=== PATIENT | male | born 1960 | race Caucasian/White ===

== ENCOUNTER 2018-11-18 13:35 | Outpatient (CLI) | payer OTHER, SELFPAY ==
[2018-11-18] VITALS (7 sets, daily range): BP systolic 123–143; BP diastolic 75–87; PULSE 64–72; RESP 16–18; TEMP 36.2; O2SAT 95–96
--- NOTE | 2018-11-18 13:39 | DI.RAD.S_ITS ---
PROCEDURE: PAIN L/SI FACET INJ/BLK 1STL INDICATIONS: SPONDYLOSIS FINDINGS: Fluoroscopic spot filming was performed to verify placement of spinal needles at the left L3-L4 at L4-L5 level(s), as labeled on the films. Appropriate location(s) of the needle tip(s) was confirmed by injection of iodinated contrast. IMPRESSION: Fluoroscopy for pain management. Dictated by: Anitha Brown M.D. on 11/18/2018 at 17:43 Approved by: Anitha Brown M.D. on 11/18/2018 at 17:46
[2018-11-18] MEDS: MIDAZOLAM 5 MG/5 ML VIAL IV (14:30)
--- NOTE | 2018-11-18 14:39 | PC.NURSE ---
pt tolerated procedure, pt awake and alert through out. Able to get off table with standby assist. Transferred pt via wheelchair to pre procedure room to Resume monitoring with Jina FOSTER.
[2018-11-18] MEDS: fentaNYL 100 MCG/2 ML INJ 50 MCG IV (14:47)
--- NOTE | 2018-11-18 14:49 | PC.NURSE ---
ACCEPTED CARE OF PT IN POST PROC AREA IN STABLE CONDITION
[2018-11-18] MEDS: BUPIVACAINE 0.5% (PF) VIAL 2 ML INJ (14:52)
[2018-11-18] MEDS: BETAMETHASONE 30 MG/5 ML MDV 12 MG INJ (14:52)
[2018-11-18] MEDS: IOPAMIDOL 15 ML VIAL 3 ML INJ (14:52)
--- NOTE | 2018-11-18 15:32 | P.PCN_ITS ---
Procedures Date/Time Date of procedure: 11/18/18 Time of procedure: 15:30 General Procedure description: PREOP DIAGNOSIS 1. FACET ARTHROPATHY, 2. AXIAL LBP, 3. MULTILEVEL DDD, POST OP DIAGNOSIS 1. FACET ARTHROPATHY, 2. AXIAL LBP, 3. MULTILEVEL DDD, PROCEDURES 1. FLUORSCOPICALLY GUIDED CONTRAST CONTROLLED FACET JOINT INJECTIONS LEFT L3/4 , L4/5 SURGEON: Leonel Newton, DO INDICATIONS Kelechi is referred by Dr. Dos Santos for treatment of Axial LBP FINDINGS Multilevel Facet Arthropathy with Clinically significant axial LBP DESCRIPTION OF PROCEDURE Fluoroscopically guided, contrast-controlled left L3/4, L4/5 facet joint injections. Following denial of allergy and review of potential side effects and complications, including, but not necessarily limited to, infection, allergic reaction, local tissue breakdown, stroke, temporary or permanent nerve injury, paralysis, and possible , the patient indicated that the patient understood and agreed to proceed. An informed consent document was signed by the patient, witnessed by a nurse, and placed in the patient's chart. Additionally, other treatment options including medications, modalities, and physical therapy were reviewed with the patient. After review of previous anaesthesic history and IV conscious sedation the patient was deemed safe to proceed with todays procedure with IV conscious sedation as ASA class II designation. Safety time-out was performed to confirm patient ID, procedure to be performed and site of procedure. IV sedation was accomplished with a combination of 3mg of Versed and 50mcg of Fentanyl administered by the RN after DO order, titrated to patient comfort during the course of the procedure while the patient remained responsive to all verbal commands. In the prone position, following sterile prep and drape of the lumbar region, the posterior aspect of the left L3/4, L4/5 facet joints were identified fluoroscopically. The skin was anesthetized via a 25-gauge 1.5-inch needle with 1% lidocaine solution into the corresponding facet joints. At this point, a 22-gauge 3.5-inch spinal needle was atraumatically introduced and advanced under fluoroscopic guidance into the corresponding facet joints. Following negative aspiration, injections of approximately 0.2-cc of Isovue 200 confirmed interarticular placement without vascular uptake. Radiological data, including multiple fluoroscopic views of the lumbosacral spine, reveal a spinal needle at the left L3/4, L4/5 facet joints. Subsequent views show flow of contrast material both superiorly and inferiorly within the joint space without vascular or intrathecal uptake. At this point, a total of 0.5 cc including a mixture of 0.25 cc Marcaine and 0.25 cc betamethasone was injected without complication into each of the corresponding facet joints. The patient tolerated the procedure well without signs or symptoms of complications prior to transfer to the recovery area for further monitoring. The patient was then transferred to the recovery area where they were observed for an appropriate period of time after the injection. The patient reported a VAS score of 7 prior to the procedure and a post-procedure VAS of 0. Total Fluoroscopy Time: 12.7 seconds Total Conscious Sedation Time: 24min POST OP INSTRUCTIONS The patient was provided a Pain Log to continue to record their response to the target-specific procedure prior to follow-up visit with their referring physician. Additionally, specific post-injection care instructions and a contact number to our office were provided if concerns arise regarding possible complications associated with the procedure are suspected Complications: none
--- NOTE | 2018-11-19 16:15 | PC.NURSE ---
FOLLOW UP CALL MADE. LEFT MSG WITH CLINIC # FOR ANY QUESTIONS/CONCERNS.
== END 2018-11-18 15:13 | disposition home or self-care (01) ==
LOC: RAD 13:38
PROVIDERS: PCP Family Medicine; Visit Provider Physical Medicine & Rehabilitation
DX: M47.817 Spondylosis without myelopathy or radiculopathy, lumbosacral region (principal); M51.36 Other intervertebral disc degeneration, lumbar region; M54.5 Low back pain
CPT/HCPCS: 64493; 64494; 99152; J0702; J2250; J3010

== ENCOUNTER 2019-01-06 12:27 | Outpatient (CLI) | payer OTHER, SELFPAY ==
[2019-01-06] VITALS (8 sets, daily range): BP systolic 114–154; BP diastolic 66–97; PULSE 63–72; RESP 16–18; TEMP 36.7; O2SAT 94–97
--- NOTE | 2019-01-06 12:29 | DI.RAD.S_ITS ---
PROCEDURE: PAIN L/S TRANSFORAMINAL INJECT INDICATIONS: SPINAL STENOSIS FINDINGS: Fluoroscopic spot filming was performed to verify placement of spinal needles at the L3-L4 level(s), as labeled on the films. Appropriate location(s) of the needle tip(s) was confirmed by injection of iodinated contrast. Dictated by: Serge Davidson M.D. on 01/06/2019 at 13:56 Approved by: Serge Davidson M.D. on 01/06/2019 at 13:56
[2019-01-06] MEDS: MIDAZOLAM 5 MG/5 ML VIAL IV (13:18)
[2019-01-06] MEDS: DEXAMETHASONE 10 MG/ML VIAL 20 MG INJ (13:23)
[2019-01-06] MEDS: IOPAMIDOL 15 ML VIAL 3 ML INJ (13:23)
[2019-01-06] MEDS: BUPIVACAINE 0.25% (PF) VIAL 2 ML INJ (13:23)
--- NOTE | 2019-01-06 13:26 | PC.NURSE ---
assisting pt off table and transporting to post proc area in stable condition
--- NOTE | 2019-01-06 13:38 | PM.PROC.1 ---
Procedures Date/Time Date of procedure: 01/06/19 Time of procedure: 13:38 General Procedure description: PROVIDER: Leonel Newton DO Operative Note PREOP DIAGNOSIS 1. FORAMINAL STENOSIS WITH LE SYMPTOMS, POST OP DIAGNOSIS 1. FORAMINAL STENOSIS WITH LE SYMPTOMS, PROCEDURES 1. FLUOROSCOPICALLY GUIDED CONTRAST CONTROLLED TRANSFORAMINAL EPIDURAL STEROID INJECTION - LEFT L3/4 TFESI SURGEON: Leonel Newton, INDICATIONS Kelechi is referred by Dr. Cardenas for treatment of HNP with left LE Symptoms FINDINGS Foraminal Nerve Root Compression secondary to disc disease and facet hypertrophy DESCRIPTION OF PROCEDURE Following denial of allergy and review of potential side effects and complications, including, but not necessarily limited to, infection, allergic reaction, local tissue breakdown, stroke, temporary or permanent nerve injury, paralysis, and possible , the patient indicated that the patient understood and agreed to proceed. An informed consent document was signed by the patient, witnessed by a nurse, and placed in the patient's chart. Additionally, other treatment options including medications, modalities, and physical therapy were reviewed with the patient. After review of previous anaesthesic history and IV conscious sedation the patient was deemed safe to proceed with todays procedure with IV conscious sedation as ASA class II designation. Safety time-out was performed to confirm patient ID, procedure to be performed and site of procedure. IV sedation was accomplished with a combination of 3mg of Versed was administered by the RN after DO order, titrated to patient comfort during the course of the procedure while the patient remained responsive to all verbal commands In the prone position following sterile prep and drape of the lumbar region, the left L3/4 posterior neuroforamen was identified fluoroscopically. The skin was anesthetized via a 25-gauge 1.5-inch needle with 1% lidocaine solution. At this point, a 25-gauge 3.5-inch spinal needle was atraumatically introduced and advanced under fluoroscopic guidance through the posterior left L3/4 neuroforamen to approximately the anterior aspect of the canal. Depth was confirmed on lateral view. Following negative aspiration, injection of approximately 1.5 cc of Isovue 200 under live fluoroscopy in the AP view confirmed excellent flow along the nerve root, into the epidural space without vascular or intrathecal uptake observed Radiological data, including multiple fluoroscopic views of the lumbosacral spine, reveal a spinal needle at the left L3/4 posterior neuroforamen. Subsequent views show flow of contrast material flowing superiorly and inferiorly along the nerve root confirming epidural flow. Subsequently, a test dose of 1.5 cc of 1% lidocaine solution was administered and patient was observed for two minutes for signs or symptoms of complications, including abdominal pain, shortness of breath, bilateral upper or lower extremity weakness, nausea and vomiting, prior to steroid injection. At this point, a total of 2cc or 20mg of dexamethasone was injected without incident. The patient tolerated the procedure well without signs or symptoms of complications prior to transfer to the recovery area continued monitoring without incident. The patient was then transferred to the recovery area where they were observed for an appropriate time after the injection. The patient reported a VAS score of 7 prior to the procedure and a post-procedure VAS of 0. Total Fluoroscopy Time: 24.2 seconds Total Conscious Sedation Time: 24min POST OP INSTRUCTIONS The patient was provided a Pain Log to continue to record their response to the target-specific procedure prior to follow-up visit with their referring physician. Additionally, specific post-injection care instructions and a contact number to our office were provided if concerns arise regarding possible complications associated with the procedure are suspected. Leonel Newton DO Complications: none
--- NOTE | 2019-01-06 14:04 | PC.NURSE ---
Pt returned from procedure on a gurney related to his left leg is completely numb. He is awake and alert and can move all his extremities he just can't feel the lower ones. L>R. Resumed monitoring from Jina FOSTER.
--- NOTE | 2019-01-06 14:07 | PC.NURSE ---
At 1400 checked pt's legs again, unable to feel much in the left leg, still able to move them independently. pt remains awake and alert with needs met.
--- NOTE | 2019-01-06 14:23 | PC.NURSE ---
At 1415 pt has noticed some tingling in his left leg now but still haven't tried him on his feet yet. His needs are met.
--- NOTE | 2019-01-06 14:40 | PC.NURSE ---
Pt attempt to stand up from gurney with stand by assist and his left leg is still a little off, he just needs to wait a little bit longer for it to completely return.
--- NOTE | 2019-01-06 15:01 | PC.NURSE ---
pt able to stand on both feet with stability, he reports his butt is still numb but he can stand with equal power in both legs. His is driving him home to [facility]. He was able to get into the car ok.
--- NOTE | 2019-01-07 15:07 | PC.NURSE ---
Follow up call made but patient did not answer phone so message left.
== END 2019-01-06 15:01 ==
PROVIDERS: PCP Family Medicine; Visit Provider Physical Medicine & Rehabilitation
DX: M48.061 Spinal stenosis, lumbar region without neurogenic claudication (principal); M51.16 Intervertebral disc disorders with radiculopathy, lumbar region; M99.83 Other biomechanical lesions of lumbar region
CPT/HCPCS: 64483; 99152; J1100; J2250; J3010

== ENCOUNTER → 2019-06-01 06:07 | Outpatient (CLI) | payer OTHER, SELFPAY ==
--- NOTE | 2019-06-01 06:10 | DI.MRI.S_ITS ---
PROCEDURE: MR HIP LT WO CON INDICATIONS: Acetabular impingement TECHNIQUE: Noncontrast coronal T1 spin echo and STIR through the bony pelvis. Coronal and axial T2 fast spin echo with fat saturation, sagittal T1 spin echo, and oblique axial T2 fast spin echo with fat saturation through the hip. COMPARISON: None. FINDINGS: Image quality: Excellent. Bones and joints: Bone marrow of the right-sided pelvic ring and proximal femurs show normal signal throughout. In contrast, on the left, there is reactive marrow space edema associated with the presence of severe osteoarthritis involving the left hip where a [id number] articulation and prominent osteophytic spurring is present. No intraosseous lesions or fractures. No avascular necrosis of the femoral heads. The visualized lower lumbar spine appears normally aligned. Tendons and ligaments: The gluteus medius and minimus tendons appear intact, without associated muscle atrophy. The nearby proximal iliotibial band also appears intact. The iliopsoas tendon appears intact, without adjacent bursal fluid collections or evidence for impingement syndrome. The origin of the hamstring tendon is intact at the ischial tuberosity, as well as the associated sacrotuberous ligament. The straight and reflected heads of the rectus femoris muscle origin appear intact, as well as the conjoint tendon. The ligamentum teres appears intact where visualized. Labrum and cartilage: The acetabular labrum appears largely absent into severe osteoarthritis involving the left hip joint, but is relatively poorly seen in the absence of intra-articular contrast. Cartilage surface of the femoral head appears of markedly reduced thickness with essentially [id number] articulation. The alpha angle of the femur is within normal limits at less than 55 degrees. note is made of a reactive moderate joint effusion with a secondary synovial protrusion projecting anteriorly (centered on series 4 image 21) through the capsular defect measuring up to 9 mm in width resulting in a synovial protrusion between the femoral artery and vein measuring up to 2.0 x 2.8 cm in maximal axial dimension. A portion of this protrusion extends cephalad along the iliopsoas muscle to a slight degree resulting in mild edema along the left iliac fossa more cephalad within the pelvis. Soft tissues: Visualized muscles demonstrate normal bulk and internal signal. Quadratus femoris muscle demonstrates no internal edema to suggest ischiofemoral impingement. The proximal sciatic neurovascular bundle appears normal adjacent to the hamstring tendons. No free pelvic fluid. Bladder wall thickness is normal. Genitourinary structures and bowel loops appear normal where visualized. IMPRESSION: Severe left hip joint degenerative osteoarthritis with [id number] articulation and with a secondary moderate sized joint effusion on the left resulting in any anterior directed synovial protrusion at both impinges on the posterior border of the femoral artery and vein but also extends with reactive edema directed cephalad along the iliopsoas muscle and into the left iliac fossa. Orthopedic surgical consultation is anticipated. Right hip joint osteoarthritis is quite mild. Dictated by: Floyd Diaz M.D. on 06/01/2019 at 16:46 Approved by: Floyd Diaz M.D. on 06/01/2019 at 16:50
== END ==
PROVIDERS: PCP Family Medicine; Visit Provider Physical Medicine & Rehabilitation
DX: M25.852 Other specified joint disorders, left hip (principal); M16.0 Bilateral primary osteoarthritis of hip; M25.452 Effusion, left hip
CPT/HCPCS: 73721

== ENCOUNTER → 2019-07-29 19:01 | Outpatient (ROUT) | payer OTHER, SELFPAY ==
[2019-07-29 19:29] LABS: Add Manual Diff / Slide Review NO; Alanine Aminotransferase 24 IU/L (21-72); Albumin 4.6 g/dL (3.5-5.0); Albumin Globulin Ratio 1.4 (1.0-2.8); Alkaline Phosphatase 82 U/L (38-126); Aspartate Aminotransferase 43 IU/L (17-59); Basophils Absolute Auto 100 /uL (0-100); Basophils Percent Auto 0.6 % (0-2); Bilirubin Total 0.9 mg/dL (0.2-1.3); Blood Urea Nitrogen 17 mg/dL (9-20); Calcium 9.7 mg/dL (8.4-10.2); Carbon Dioxide 24 mmol/L (22-32); Chloride 104 mmol/L (98-107); Cholesterol 262 mg/dL (140-199); Eosinophils Absolute Auto 200 /uL (0-450); Eosinophils Percent Auto 2.3 % (2-4); Estimated Glomerular Filt Rate > 60.0 mL/min (>60); Globulin 3.2 g/dL (1.7-4.1); Glucose 113 mg/dL (80-110); HDL Cholesterol 47 mg/dL (40-60); Hematocrit 44.1 % (41-53); Hemoglobin 15.5 g/dL (13.5-17.5); LDL Cholesterol Calculated 155 mg/dL (<100); Lymphocytes Absolute Auto 3000 /uL (1100-4500); Lymphocytes Percent Auto 31.7 % (25-40); Mean Corpuscular Hemoglobin 30.9 PG (26-34); Mean Corpuscular Volume 88.3 fL (80-100); Monocytes Absolute Auto 600 /uL (0-900); Monocytes Percent Auto 6.4 % (3-14); Neutrophils Absolute Auto 5500 /uL (1500-7000); Platelet Count 297 X10^3/uL (150-400); Potassium 3.8 mmol/L (3.4-5.1); Red Cell Distribution Width 13.3 % (11.6-14.8); Sodium 139 mmol/L (137-145); Total Protein 7.8 g/dL (6.3-8.2); Triglycerides 300 mg/dL (35-150); White Blood Cell Count 9.3 X10^3/uL (4.5-11.0)
[2019-07-29 19:31] LABS: HEMOLYSIS 57 (0-50)
[2019-07-29 19:59] LABS: Prostate Specific Antigen 1.48 ng/mL (0.10-4.00); TSH w/ Reflex to FT4 1.28 uIU/mL (0.47-4.68)
== END ==
PROVIDERS: PCP Family Medicine; Visit Provider Internal Medicine
DX: Z00.00 Encounter for general adult medical examination without abnormal findings (principal); I48.91 Unspecified atrial fibrillation
CPT/HCPCS: 80053; 80061; 84153; 84443; 85025